=== PATIENT | male | born 1940 | race Caucasian/White ===

== ENCOUNTER 2017-05-25 14:18 | Inpatient (IN) | payer OTHER ==
[~2017-05-25] VITALS: Ht 177.8 cm; Wt 86.2 kg
--- NOTE | ~2017-05-25 | 2DMMODE ---
[facility] [address] [place] [address] 2 D/M-MODE ECHOCARDIOGRAM Name: AILYN GONZALEZ Room #: 407-P ADM IN M.R.#: [id number] Admission: 05/25/17 Attend Phys: Flex Chase Discharge: Date of : 42 Date of Service: 05/26/17 1141 Report #: [id number] THIS REPORT FOR: //name// APPROVED REPORT Study performed: 05/26/2017 10:04:44 EXAM: Comprehensive 2D, Doppler, and color-flow Echocardiogram Patient Location: Echo lab Room #: 407 Status: routine BSA: 2.04 HR: 55 bpm BP: 113/59 mmHg Rhythm: NSR Other Information Study Quality: Good Indications CVA Echo Enhancing Agent Indication: Rule out Shunt Agent(s) / Amount(s) Used: Definity 6 cc 2D Dimensions RVDd: 27.47 mm LVEF(%): 66.37 (>50%) IVSd: 11.24 (7-11mm) LVOT Diam: 24.23 (18-24mm) LVDd: 52.90 mm PWd: 10.49 (7-11mm) Ascending Ao: 42.84 (22-36mm) LVDs: 33.37 (25-40mm) Aortic Root: 48.34 mm Renner's LVEF: 66.37 % Volumes Left Atrial Volume (Systole) Single Plane 4CH: 56.17 mL Single Plane 2CH: 60.90 mL LA ESV Index: 31.00 mL/m2 Aortic Valve AoV Peak Ole.: 1.41 m/s AO Peak Gr.: 8.00 mmHg LVOT Max P.20 mmHg LVOT Max V: 1.14 m/s EDWINA Vmax: 3.72 cm2 [facility] [place] [address] 2 D/M-MODE ECHOCARDIOGRAM Name: AILYN GONZALEZ Room #: 407-[facility] IN M.R.#: [id number] Admission: 05/25/17 Attend Phys: Flex Chase Discharge: Date of : 42 Date of Service: 05/26/17 1141 Report #: [id number] Mitral Valve E/A Ratio: 1.4 MV Decel. Time: 235.65 ms MV E Max Ole.: 0.68 m/s MV A Ole.: 0.50 m/s MV PHT: 68.34 ms IVRT: 83.04 ms Pulmonary Vein P Vein S: 0.69 m/s P Vein A: 0.32 m/s P Vein D: 0.64 m/s P Vein A Dur.: 106.1 msec P Vein S/D Ratio: 1.08 Tricuspid Valve TR Peak Ole.: 2.07 m/s RAP Estimate: 5.00 mmHg TR Peak Gr.: 17.11 mmHg PA Pressure: 22.00 mmHg Left Ventricle The left ventricle is normal size. There is normal LV segmental wall motion. Mild basal septal hypertrophy is present. Left ventricular systolic function is normal. LVEF is 60-65%. Moderate diastolic dysfunction is present (pseudonormal filling). Right Ventricle The right ventricle is normal size. The right ventricular systolic function is normal. Atria The left atrium size is normal. No shunting noted by contrast bubble injection. The right atrium size is normal. Aortic Valve The aortic valve is normal in structure. Mild to moderate aortic regurgitation. There is no aortic valvular stenosis. Mitral Valve The mitral valve is normal in structure. Mild mitral regurgitation. Tricuspid Valve The tricuspid valve is normal in structure. Trace tricuspid regurgitation. Estimated PAP is 20-25mmHg. Pulmonic Valve [address] [address] 2 D/M-MODE ECHOCARDIOGRAM Name: AILYN GONZALEZ Room #: 407-P [facility] IN [facility]#: [id number] Admission: 05/25/17 Attend Phys: Flex Chase Discharge: Date of : 42 Date of Service: 05/26/17 1141 Report #: [id number] The pulmonary valve is normal in structure. Trace pulmonic regurgitation. Great Vessels Aortic root is moderately dilated at the level of the sinuses measuring 4.8cm. The ascending aorta is mildly dilated at 4.3cm. IVC is normal in size and collapses >50% with inspiration. Pericardium There is no pericardial effusion. <Conclusion> The left ventricle is normal size. LVEF is 60-65%. The aortic valve is normal in structure. Mild to moderate aortic regurgitation. The mitral valve is normal in structure. Mild mitral regurgitation. The tricuspid valve is normal in structure. Trace tricuspid regurgitation. Estimated PAP is 20-25mmHg. The pulmonary valve is normal in structure. Trace pulmonic regurgitation. Aortic root is moderately dilated at the level of the sinuses measuring 4.8cm. The ascending aorta is mildly dilated at 4.3cm. There is no pericardial effusion. <ELECTRONICALLY SIGNED> By: Dylan Griffin MD 05/26/17 1141 1141 1141 Dylan Griffin MD /INF
--- NOTE | ~2017-05-25 | EKG ---
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
--- NOTE | ~2017-05-25 | D ---
[facility] [place] [address] DISCHARGE SUMMARY Name: AILYN GONZALEZ Room #: 407-P [facility] IN M.R.#: [id number] Admission: 05/25/17 Attend Phys: Markell Lindsay Discharge: 05/27/17 Date of : 42 Report #: [id number] THIS REPORT FOR: //name// CC: Flex Keys FINAL DIAGNOSES: 1. Viral syndrome. 2. Leukopenia. 3. Thrombocytopenia. 4. Leg weakness. 5. Hyperglycemia. PROCEDURES: 1. MRI brain. 2. MRI thoracic and lumbar spine. 3. Carotid ultrasound. 4. Echocardiogram. HOSPITAL COURSE: The patient was admitted with leg weakness. Workup was really unremarkable, including MRI brain, thoracic and lumbar spine, echocardiogram and lab data. The only pertinent findings include thrombocytopenia and leukopenia along with slightly elevated BUN and creatinine. This was caused by prerenal state and potentially the use of Aleve at home. His creatinine normalized by discharge. Blood counts remained suppressed but thought process is that this was related to a viral syndrome. He was seen by Neurology, lot of the testing can only be done as an outpatient as they documented. He worked with physical therapy and was independent with transfers, walking 250 feet. He had no other interval complications. He was also noted to have slightly elevated blood sugars around 200 at times, his hemoglobin A1c was 6.6. This is similar to outpatient findings. He is instructed on a low sugar diet. PHYSICAL EXAMINATION: On the day of discharge: GENERAL: He was awake and alert with stable vital signs. LUNGS: Clear. HEART: Regular. ABDOMEN: Soft, normoactive bowel sounds. EXTREMITIES: No edema. NEUROLOGIC: He was intact. DISPOSITION: He will be discharged to home with diet and activity as tolerated. Tylenol as needed. No Aleve at this point. Followup with Dr. Keys in 1 week, Dr. Diaz in 2 weeks. <ELECTRONICALLY SIGNED> By: Imer Pritchard MD 05/27/17 1206 [id number] [id number] Imer Pritchard MD /nt
--- NOTE | ~2017-05-25 | HC ---
[facility] [place] [address] CONSULTATION Name: AILYN GONZALEZ Room #: 407-P [facility] IN M.R.#: [id number] Admission: 05/25/17 Attend Phys: Markell Lindsay Discharge: 05/27/17 Date of : 42 Report #: [id number] THIS REPORT FOR: //name// CC: Flex Keys DATE OF SERVICE: 05/26/2017 HISTORY OF PRESENT ILLNESS: This is a 76-year-old male patient who was evaluated by me because he indicated that about 2-3 days ago, he just had weakness in the lower extremities and was not able to stand up, he had some weakness in the upper extremity also. He believes he has improved. His biggest weakness was standing up from the sitting down position. He never had this kind of episode before. He does not drink alcohol. He believes he had some balance issue also at that time. REVIEW OF SYSTEMS: Indicate that he never had this kind of symptoms before. He does have a history of dyslipidemia. He was diagnosed with a question of stroke at one time. I do not have any of those records. Otherwise, he feels better. He does not believe there is any new eye, ENT, cardiac, respiratory, GI, , constitutional, dermatological, hematological, psychiatric, throat, or allergic symptom associated with present symptomatology. PAST MEDICAL HISTORY: Positive for question of stroke. FAMILY HISTORY: Negative for any early age stroke. SOCIAL HISTORY: He says he does not drink alcohol. He does not smoke. PHYSICAL EXAMINATION: The patient's examinations indicate he is alert, responsive, oriented, able to follow simple and complex command. His speech, concentration, fund of knowledge and memory is at his baseline. Cranial nerve examination 2-12 is unremarkable. His strength in all 4 extremities is reasonable. His position sense is intact. His tone is normal, but I could not elicit the reflexes very well in the lower extremities. I do not know what his baseline is. He is otherwise a well-developed individual who does not have any dysmorphic features of eyes, ears and face. His vision and hearing looks adequate. His heart examination showed unremarkable heart sounds and there is no murmur or atrial fibrillation. No respiratory difficulty or rhonchi was noticed. Blood pressure is 113/59, respirations 18, pulse is 68, and temperature is 99. There is no edema, cyanosis, or jaundice. His pulses are palpable. He has no thyroid mass or carotid bruit. LABORATORY DATA: Indicate a white count of 2.9 and a platelet count of only 84. His BUN and creatinine is also abnormal. His blood sugar is 200. His CPK is normal. His TSH is normal. He had an MRI of the brain, which showed no acute changes. [address] [address] CONSULTATION Name: AILYN GONZALEZ Room #: 407-P DIS IN M.R.#: [id number] Admission: 05/25/17 Attend Phys: Markell Lindsay Discharge: 05/27/17 Date of : 42 Report #: [id number] IMPRESSION: This is a difficult patient because multiple diagnoses need to be considered and I do not have his last MRI to see what kind of stroke he had. This patient's platelet count and WBC is low and if it is new, that may indicate that he may have some viral syndrome, which may have caused him the symptoms. However, if the last stroke was real then the possibility of posterior fossa transient ischemic attack need to be excluded in this patient. Similarly, a spine lesion need to be excluded, although the last time when he had symptoms, it was in the arm and the leg and the only focus on the MRI of the brain, which is old is on the left cerebral hemisphere. All of them did not make any sense. RECOMMENDATION: I discussed the situation with him. We will go ahead and do an MRI of the spine as well as MRA. I will get an echocardiogram done to make sure there is no source of embolization. Myasthenia marker cannot be done in this patient because of the hospital policy as an inpatient. That needs to be done as an outpatient. Similarly, there is no machine to do EMG in this patient, which he needs. Again, that needs to be done as an outpatient. His blood sugar and kidney function are abnormal and that need to be addressed because they can give rise to neuropathy even in the milder form. Thank you very much for this referral. We will see whatever workup can be done as an inpatient and rest of it need to be done as an outpatient. I discussed all of it with the patient and the patient wants to follow this plan. Thank you very much. <ELECTRONICALLY SIGNED> By: Oscar Diaz MD 06/09/172008 0857 Oscar Diaz MD /nt
--- NOTE | ~2017-05-25 | H ---
[facility] [place] [address] HISTORY AND PHYSICAL Name: AILYN GONZALEZ Room #: 407-P ADM IN M.R.#: [id number] Admission: 05/25/17 Attend Phys: Markell Lindsay Discharge: Date of : 42 Report #: [id number] THIS REPORT FOR: //name// CC: Flex Keys DATE OF SERVICE: 05/25/2017 CHIEF COMPLAINT: Leg weakness. HISTORY OF PRESENT ILLNESS: The patient is a 76-year-old gentleman who was admitted from the office today with a complaint of leg weakness. He said he was in his usual state of health until yesterday evening while after sitting on the couch for several hours he felt weakness in the legs and was unable to get up. He said he just did not have the power or strength to sit up from his low lying couch. Eventually, he got to the floor and crawled to the bathroom. It sounds like where he was able to pull himself up and get around. He then decided to take his nightly warm bath before going to sleep. As usual, he was able to get around his bathroom and climbed into his bathtub for the usual length of time; however, then he was trying to get out of the tub and just did not have the power to stand up from the prone position. He tried swinging his left leg over the tub and standing up and immediately lost his balance and fell over backwards grabbing a hold of a side rail. Eventually, he climbed head first over the side of the tub and into his bedroom. He was unable to pull himself up and get into bed. He said this morning he had a little trouble getting up and felt that he was off balance. He felt like he was falling backwards, back on to the bed; however, he was able to get up, dress and have his normal morning. He took his dog for a walk this morning, but unfortunately slipped on a patch of ice and went down. Again, he had trouble standing up and needed help. At that point, he called his daughter and he was brought into the office this afternoon. Dr. Keys directed him for admission. He also reported a recent viral illness with some cough and congestion and upper respiratory symptoms. He denies any fever or chills. He denied any unilateral weakness. However, he did report last January that he had a spell of numbness in the left lower leg and left hand. He has had an MRI taken at that time at an outpatient center, showed a "small mini stroke" and he was placed on an aspirin. PAST MEDICAL HISTORY: Dyslipidemia, gastroesophageal reflux with a history of localized achalasia on EGD. He has had a colonoscopy in 2006. PAST SURGICAL HISTORY: He has had right knee surgery and bilateral carpal tunnel. FAMILY HISTORY: Noncontributory. SOCIAL HISTORY: He lives alone. No chronic alcohol or tobacco use. [address] [address] HISTORY AND PHYSICAL Name: AILYN GONZALEZ Room #: 407-P [facility] IN M.R.#: [id number] Admission: 05/25/17 Attend Phys: Markell Lindsay Discharge: Date of : 42 Report #: [id number] ALLERGIES: None. MEDICATIONS: Aspirin, Aleve on an as needed basis. REVIEW OF SYSTEMS: He denies headache, visual change, sore throat, chest pain, shortness of breath, productive cough, abdominal pain, nausea, vomiting, diarrhea, constipation, dysuria, syncope. OBJECTIVE: VITAL SIGNS: In the office include blood pressure 146/80, temperature 98.1, pulse 54, respiration 18, O2 sat 98% on room air. GENERAL: He is awake, alert, sitting up in the ER exam room. HEAD AND NECK: Unremarkable. Speech is fluent. He had facial symmetry. NECK: No bruits. LUNGS: Clear. No wheezing. HEART: Regular, no murmur. ABDOMEN: Soft, normoactive bowel sounds. EXTREMITIES: No cyanosis, clubbing or edema. Distal pulses 2+. NEUROLOGIC: upper body strength is intact. 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 Lower extremity strength seemed grossly intact. He had some weakness with dorsiflexion and extension at the ankle. Standing balance and Romberg was abnormal. He did require assistance standing up from a wheelchair. I did not try to have him walk for concern of fall. ASSESSMENT: 1. Acute leg weakness, rule out a vascular event. 2. Recent viral syndrome. PLAN: I spoke with Dr. 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 Given his report of a "mini stroke" last year or sometime and some signs that he seems to have unilateral weakness, worse on the left than the right, an MRI of the brain will be ordered to rule out a vascular event. He is well outside the window time frame of any acute intervention in the case of a subacute stroke. At this point, he will be treated medically. I will ask the Neurology team to see him as well. <ELECTRONICALLY SIGNED> By: Imer Pritchard MD 05/26/17 1214 [id number] MD jean Gu
[2017-05-25 20:00] VITALS: BP 129/54
[2017-05-25 22:18] LABS: HEMATOCRIT 44.3 % (42.0-52.0); HEMOGLOBIN 15.1 gm/dL (14.0-18.0); MCH 31.2 pg (26.0-34.0); MCHC 34.1 g/dL (28.0-37.0); MCV 91.4 fL (80.0-100.0); RBC 4.85 mil/uL (4.50-6.00); RDW 13.3 % (10.5-14.5); WBC 2.9 thou/uL (4.0-11.0)
[2017-05-25 22:31] LABS: ALBUMIN 3.2 g/dL (3.4-5.0); CALCIUM 8.6 mg/dL (8.5-10.1); CREATININE 1.4 mg/dL (0.7-1.3); POTASSIUM 4.2 mmol/L (3.5-5.1); TOTAL BILIRUBIN 0.5 mg/dL (<0.1-1.0); TOTAL PROTEIN 5.9 g/dL (6.4-8.2)
[2017-05-26] VITALS: BP 110/55
[2017-05-26 04:00] VITALS: BP 113/59
[2017-05-26 08:06] VITALS: BP 114/64
[2017-05-26 14:28] LABS: HEMATOCRIT 45.6 % (42.0-52.0); HEMOGLOBIN 15.4 gm/dL (14.0-18.0); MCH 30.9 pg (26.0-34.0); MCHC 33.8 g/dL (28.0-37.0); MCV 91.4 fL (80.0-100.0); RBC 4.99 mil/uL (4.50-6.00); RDW 13.4 % (10.5-14.5); WBC 2.3 thou/uL (4.0-11.0)
[2017-05-26 14:42] LABS: ALBUMIN 3.3 g/dL (3.4-5.0); CALCIUM 8.3 mg/dL (8.5-10.1); CREATININE 1.3 mg/dL (0.7-1.3); POTASSIUM 3.9 mmol/L (3.5-5.1); TOTAL BILIRUBIN 0.5 mg/dL (<0.1-1.0); TOTAL PROTEIN 6.2 g/dL (6.4-8.2)
[2017-05-26 15:35] VITALS: BP 108/51
[2017-05-26 19:11] LABS: GLYCOHEMOGLOBIN (HGB A1C) 6.7 % (4.8-5.6)
[2017-05-26 20:00] VITALS: BP 127/64
[2017-05-27 04:00] VITALS: BP 114/61
[2017-05-27 09:23] VITALS: BP 122/73
[2017-05-27] MEDS ORDERED: ACETAMINOPHEN325 M1 PO (10:26)
[2017-05-27 10:33] VITALS: BP 122/73
== END 2017-05-27 11:10 | disposition home or self-care (01) | DRG 866 ==
LOC: EROBS 14:18 → 4N 14:19 → EROBS 14:19 → 4N 17:07 → ENTRNSPT 05-27 11:08 → 4N 05-27 11:10 → EDTRNSPTSTS 05-27 11:11
PROVIDERS: Internal Medicine Geriatric Medicine
DX: B34.9 Viral infection, unspecified (principal); R73.9 Hyperglycemia, unspecified; D72.819 Decreased white blood cell count, unspecified; D69.6 Thrombocytopenia, unspecified; E78.5 Hyperlipidemia, unspecified; K21.9 Gastro-esophageal reflux disease without esophagitis; Z60.2 Problems related to living alone
CPT/HCPCS: 10790

== ENCOUNTER 2019-03-15 07:35 | Inpatient (IN) | payer OTHER ==
[2019-02-27 13:15] LABS: HEMATOCRIT 46.6 % (42.0-52.0); HEMOGLOBIN 15.7 gm/dL (14.0-18.0); MCH 31.4 pg (26.0-34.0); MCHC 33.7 g/dL (28.0-37.0); MCV 93.1 fL (80.0-100.0); RDW 15.1 % (10.5-14.5); WBC 4.4 thou/uL (4.0-11.0)
[2019-02-27 13:25] LABS: ALBUMIN 3.8 g/dL (3.4-5.0); CALCIUM 8.7 mg/dL (8.5-10.1); CREATININE 1.1 mg/dL (0.7-1.3); POTASSIUM 4.7 mmol/L (3.5-5.1)
[2019-02-27 13:26] LABS: PROTIME 9.9 Seconds (9.3-11.4)
[2019-02-27 13:36] LABS: URINE BILIRUBIN NEGATIVE (Negative); URINE BLOOD NEGATIVE (Negative); URINE CLARITY CLEAR; URINE COLOR YELLOW; URINE GLUCOSE-RANDOM* NEGATIVE (Negative); URINE KETONES NEGATIVE (Negative); URINE LEUKOCYTES-REFLEX NEGATIVE (Negative); URINE NITRITE-REFLEX NEGATIVE (Negative); URINE PROTEIN (DIPSTICK) NEGATIVE (Negative)
[2019-02-27 23:10] LABS: GLYCOHEMOGLOBIN (HGB A1C) 6.6 % (4.8-5.6)
--- NOTE | 2019-02-28 08:35 | EKG ---
[address] [address] ELECTROCARDIOGRAM REPORT Name: LISAAILYN Mcghee Room #: [facility]#: [id number] Admission: Attend Phys: Oneil Scales MD Discharge: Date of : 42 Report #: [id number] THIS REPORT FOR: //name// [facility] Test Date: 2019-02-27 Test Time: 13:13:05 Pat Name: AILYN GONZALEZ Department: Room: Gender: Financial Services Counselor: REYES CASTANEDA : 1940 Requested By: Oneil Scales Order Number: [id number] MD: Devan Cedeno Measurements Intervals [place] Rate: 50 P: -14 AR: 75 QRS: 7 QRSD: 101 T: 18 QT: 434 QTc: 396 Interpretive Statements Sinus rhythm Short AR interval Compared to ECG 05/25/2017 20:18:01 Short AR interval now present Electronically Signed On 02-28-2019 8:35:12 CDT by Devan Cedeno [email or web address] <ELECTRONICALLY SIGNED> By: Devan Cedeno MD 02/28/19 0835 D: [id number] 12 Devan Cedeno MD /GATO
[~2019-03-15] VITALS: Ht 177.8 cm; Wt 86.2 kg
[~2019-03-15 07:35] MED LIST: ACETAMINOPHEN325 M1 PO; ALEVE220 M1 PO; AMARYL2 M1 PO; FLOMAX0.4 MG PO
[2019-03-15 10:31] VITALS: BP 141/75
[2019-03-15 18:55] VITALS: BP 115/63; BP 118/62
[2019-03-15 18:56] VITALS: BP 106/61; BP 115/67
[2019-03-15 18:57] VITALS: BP 122/51
--- NOTE | 2019-03-15 19:27 | NUR ---
PATIENT ADMITTED FROM OR, RIGHT PARTIAL KNEE REPLACEMENT/DR REID. PATIENT DENIES PAIN THE WHOLE SHIFT, BLOCK GIVEN. RIGHT KNEE ALIYAH DRESSING WITH [facility], [facility] AND [facility]. POST OP VITALS DONE. LEFT AC IV WITH D51/2 NS AT 100CC/HR, IV ANTIBIOTIC ORDERED FOR 1899, BUT NOT ON THE UNIT, FITZ/MRI ASSISTANT WILL GIVE THIS MEDICATION. THIS RN AMBULATED THE PATIENT TO THE BATHROO, VOIDED X 1, LBM THIS AM. POSSIBLE DISCHARGE TOMORROW. WILL CONTINUE TO MONITOR.
[2019-03-15 19:45] VITALS: BP 112/58
--- NOTE | 2019-03-16 02:28 | NUR ---
ASSUMED CARE OF PATIENT AT SHIFT CHANGE. ASSESSMENT CHARTED. MEDS GIVEN PER MAR. PATIENT IS A&OX4, VSS, DENIES PAIN. PATIENT UP TO BATHROOM W/ RN EARLIER TODAY. PT VOIDS WELL AND IS DOING WELL POSTOPERATIVELY. URINE OUTPUT IS ADEQUATE. PER DR REID, WILL SEE HOW PATIENT DOES WITH PT AND POSSIBLY DISCHARGE. PATIENT VOICES NO OTHER CONCERNS. FALL PRECAUTIONS IN PLACE. WILL CONTINUE TO MONITOR AND FOLLOW PLAN OF CARE
[2019-03-16 02:53] VITALS: BP 121/65
[2019-03-16 04:57] LABS: HEMATOCRIT 41.2 % (42.0-52.0); HEMOGLOBIN 13.6 gm/dL (14.0-18.0); MCH 31.5 pg (26.0-34.0); MCHC 32.9 g/dL (28.0-37.0); MCV 95.5 fL (80.0-100.0); RBC 4.32 mil/uL (4.50-6.00); RDW 15.3 % (10.5-14.5)
[2019-03-16 07:58] VITALS: BP 105/62
[2019-03-16] MEDS ORDERED: NEURONTIN 300300 M1 PO (12:24)
[2019-03-16] MEDS ORDERED: ASPIR 8181 MG PO (12:24)
--- NOTE | 2019-03-16 12:35 | NUR ---
PATIENT UP IN BEDSIDE CHAIR EATING LUNCH. PT WORKED WITH THERAPY. PT TO DISCHARGE TO HOME. PT WAS GIVEN PRN PAIN MED XS 1 TODAY. PT IS PLEASANT AND COOPERATIVE WITH CARE.
[2019-03-16 12:42] VITALS: BP 105/62
[2019-03-16 13:28] VITALS: BP 105/62
--- NOTE | 2019-03-16 14:42 | NUR ---
DISCHARGE PAPERS GONE OVER WITH PATIENT SIGNED AND COPY IN CHART. IV ACSESS DCD. RX'S GIVEN TO PATIENT. ALL BELONGINGS PACKED AND SENT WITH PATIENT. PT W/O PAIN OR RESP DISTRESS AT DISCHARGE.
[2019-03-16 14:51] VITALS: BP 105/62
--- NOTE | 2019-03-16 15:00 | NUR ---
ASSESSMENT-PT LIVES AT HOME ALONE. HIS DTR LIVES A COUPLE BLOCKS AWAY AND SHE WILL STAY WITH HIM TONIGHT. PT HAS NEIGHBORS THAT CHECK ON HIM AND FRIENDS THAT CAN BRING FOOD OVER TO HIM. PT HAD BEEN DOING [employer] 3X A WEEK AND GOING TO THE GYM 5X A WEEK. PT PLANS ON GOING TO [facility] OUTPT THERAPY TOMORROW AT 8AM. PT HAD BEEN DOING HIS OWN CLEANING, LAUNDRY AND WAS EATING OUT OR FRIENDS WERE BRINGING OVER FOOD. PT HAS A ROLLER WALKER AT HOME ALREADY. PT PLANS TO DC HOME TODAY AND DTR WILL TRANSPORT HIM HOME.
--- NOTE | 2019-03-21 14:57 | O ---
[facility] [place] [address] OPERATIVE REPORT Name: AILYN GONZALEZ Room #: 440-P [facility] IN M.R.#: [id number] Admission: 03/15/19 Attend Phys: Oneil Scales MD Discharge: 03/16/19 Date of : 42 Report #: [id number] THIS REPORT FOR: //name// CC: Flex Scales DATE OF SERVICE: 03/15/2019 PREOPERATIVE DIAGNOSIS: Right knee medial compartment knee osteoarthritis. POSTOPERATIVE DIAGNOSIS: Right knee medial compartment knee osteoarthritis. PROCEDURE: Right medial compartment knee arthroplasty using [employer] robotic assistance. SURGEON: Oneil Scales MD. FUR CLEANER: Angela Hairston PA-C. ANESTHESIA: LMA with an adductor canal block. INDICATIONS FOR FUR CLEANER: Throughout the case, extensive retraction and manipulation of the knee was required. This was afforded to me by my yard assistant. IMPLANTS: [employer] size 5 Journey Oxin[employer] medial femoral component, size 3 tibia, size 9 polyethylene. TOURNIQUET TIME: 44 minutes. ESTIMATED BLOOD LOSS: 25 mL. COMPLICATIONS: None. SPECIMENS: None. CONDITION UPON LEAVING THE OPERATING ROOM: Stable. INDICATIONS FOR PROCEDURE: The patient is a 78-year-old gentleman with severe right knee medial compartment osteoarthritis. He had failed conservative measures for this and after discussion with him, he elected for medial compartment knee arthroplasty. DESCRIPTION OF PROCEDURE: Risks, benefits, alternatives, complications were discussed in detail with the patient including but not limited to risk of anesthesia, risk of damage to nerves, arteries, blood vessels, risk for infection, bleeding, risk for continued knee pain and need for reoperation. [facility] [address] [place] [address] OPERATIVE REPORT Name: AILYN GONZALEZ Room #: 440-P [facility].#: [id number] Admission: 03/15/19 Attend Phys: Oneil Scales MD Discharge: 03/16/19 Date of : 42 Report #: [id number] Informed consent was obtained from the patient. The right knee was appropriately marked in the preoperative holding area. Adductor canal block was placed by anesthesia. IV Ancef was given for preoperative antibiotics. He was brought to the operating room and placed in supine position on operating room table. LMA anesthesia was induced without complication. Tourniquet was placed on the right thigh. Right lower extremity was prepped and draped in normal sterile fashion. Timeout was performed properly identifying the patient and procedure as well as the instrumentation. All in the operating room were in agreement. Standard approach to the medial knee was made with 10 blade through the skin. Dissection was taken down sharply to the fascia and deep flaps were developed medially and laterally. Fresh 10 blade was used to make a medial parapatellar arthrotomy and the knee was inspected. There was severe medial compartment osteoarthritis. Lateral compartment was well maintained. Patellofemoral compartment demonstrated grade 2 chondromalacia. ACL was intact. It was decided to proceed with medial knee arthroplasty. Reference pins were placed in the femur and the tibia. The knee was digitally mapped using the [employer] robotic system. Intraoperative plan was made. We sized a size 5 femur and a size 3 tibia and a size 9 polyethylene. After acceptance of the intraoperative plan, the femoral and tibial resections were made with a Navio bur and after this the medial meniscus was tibia was sized, found to be a size 3. A size 3 tibial trial was placed, pinned and drilled. A size 5 femoral trial was placed. This was then trialed with a size 9 polyethylene. Knee was taken through range of motion and demonstrated a millimeter ____. After this, trial components were removed. Bony ends were thoroughly irrigated with normal saline. A final size 3 tibia, size 5 Journey [employer]in[employer] medial femoral component were cemented in place using standard cementation techniques. While the cement cured, a periarticular injection consisting of morphine, ropivacaine, epinephrine and Toradol was placed around the knee joint capsule. After the cement cured, the tourniquet was deflated. Hemostasis was obtained with Bovie cautery. A final size 9 polyethylene was placed. A gram of vancomycin was placed deep in the joint. The fascia was closed with 0 Vicryl, skin was closed with 2-0 Vicryl, 3-0 Monocryl. Dermabond and a ALIYAH dressing was applied. The patient tolerated this procedure well and went to recovery room under care of anesthesia postoperatively. <ELECTRONICALLY SIGNED> By: Oneil Scales MD 03/21/19 [id number] Oneil Scales MD /nt
== END 2019-03-16 16:00 | disposition home or self-care (01) | DRG 470 ==
LOC: 4S 07:35 → TBA 07:35 → PRE 08:48 → 4S 14:25
PROVIDERS: ADMIT Orthopaedic Surgery
PROC: 8E0Y0CZ Robotic Assisted Procedure of Lower Extremity, Open Approach (ICD-10-PCS; principal; 2019-03-15)
PROC: 0SRC069 Replacement of Right Knee Joint with Oxidized Zirconium on Polyethylene Synthetic Substitute, Cemented, Open Approach (ICD-10-PCS; principal; 2019-03-15)
DX: M17.11 Unilateral primary osteoarthritis, right knee (principal); Z79.82 Long term (current) use of aspirin; Z79.899 Other long term (current) drug therapy
CPT/HCPCS: 10102; 50010; 50101; 50415; 50954; 51130; 51225; 51320; 51771; 52001; 52282; 53078; 53370; 54118; 56527; 56528; 57095; 57103; 57110; 57127; 57180; 62110; 62900; 64039; 70005